=== PATIENT | male | born 1945 | race Caucasian/White ===

== ENCOUNTER 2017-12-20 08:24 | Inpatient (IN) | payer MEDICARE ==
--- NOTE | 2017-12-09 19:12 | HP ---
HISTORY AND PHYSICAL: DATE OF ADMISSION/SURGERY: 12/20/17 DATE OF OFFICE VISIT: 12/09/17 SURGEON: Jessica Mi MD.* (DICTATED BY LENIN BEST) PROCEDURE: Left total knee arthroplasty. CHIEF COMPLAINT: Left knee pain. HISTORY OF PRESENT ILLNESS: Mr. Lockett is a 72-year-old gentleman with end-stage osteoarthritis of the left knee, failed conservative treatment and elected to proceed with a left total knee arthroplasty, which is scheduled for 12/20/17. PAST MEDICAL HISTORY: 1. Hypertension. 2. GERD. 3. High cholesterol. 4. Anemia. 5. Chronic renal insufficiency. PAST SURGICAL HISTORY: 1. Right knee surgery x2. 2. Cholecystectomy. 3. Cataract removal. CURRENT MEDICATIONS: 1. Famotidine 20 mg daily. 2. Losartan potassium 100 mg daily. 3. Doxazosin 8 mg daily. 4. Finasteride 5 mg daily. 5. Rosuvastatin calcium 10 mg daily. 6. Aspirin 81 mg daily. ALLERGIES: To PENICILLIN and SULFA. FAMILY HISTORY: Diabetes, coronary artery disease. SOCIAL HISTORY: He is a 72-year-old gentleman lives with his spouse. He does not smoke or use drugs. He uses occasional alcohol. REVIEW OF SYSTEMS: A complete 14-point review of systems was reviewed with the patient. It is positive for anemia, GERD, and renal insufficiency. He denies history of DVT, PE, HIV, or anesthesia problems. He also has a history of infectious hepatitis in 1958. PHYSICAL EXAMINATION GENERAL: He is well developed, well nourished, in no acute distress. VITAL SIGNS: He stands 67 inches tall, weighs 200 pounds. Blood pressure is 139/82 and his heart rate is 76. HEENT: Normocephalic, atraumatic. NECK: Supple. No palpable lymph nodes. PULMONARY: The lungs are clear to auscultation bilaterally. CARDIO: Regular rate and rhythm. Strong S1, S2. ABDOMEN: Soft, nontender, and nondistended. NEUROLOGIC: He is alert and oriented x3. MUSCULOSKELETAL: Left lower extremity: The skin is intact. There are no open wounds or abrasions. He walks with an antalgic-type gait favoring his left knee. There is a moderate joint effusion and tenderness over the medial lateral joint line. Range of motion is 50 to 90 degrees of flexion with severe patellofemoral crepitus. There are 2+ dorsalis pedis pulses. Intact sensation in his lower extremity. Muscle group strengths are intact at 5/5. ASSESSMENT AND PLAN: Mr. Lockett is a 72-year-old gentleman with end-stage osteoarthritis of the left knee. He has failed conservative treatment and elected to proceed with a left total knee arthroplasty. Surgery scheduled for 12/20/[address] Mi discussed the risks and benefits of the surgery and all of his questions were answered. He will follow up with Dr. Mi 2 weeks after the surgery. LENIN BEST [id number]/[facility] #: [id number] MTDD
[~2017-12-20 08:24] MED LIST: Buffered Lidocaine 0.9% SYRIN* 5 ML/SYR SYRINGE INTRADERM ONE; Dexamethasone IV* 4 MG/ML 1 ML (4 MG) IV SLOW PU ONE; Tranexamic Acid 1,000 MG in NS 0.9% 50 ML* (outpatient use) IV SCH
[2017-12-20] MEDS ORDERED: fentaNYL* 50 MCG/ML 2 ML VIAL (100 MCG VIAL) ONE (08:42)
[2017-12-20] MEDS ORDERED: Midazolam* 1 MG/ML 2 ML VIAL (2 MG) ONE (08:42)
[2017-12-20] MEDS ORDERED: Dexamethasone IV* 4 MG/ML 1 ML (4 MG) ONE (08:49)
[2017-12-20] MEDS ORDERED: Clindamycin 900 MG/D5W BAG(*) 900 MG/50 ML BAG IVPB ONE (08:49)
[2017-12-20] MEDS ORDERED: methylPREDNISolone ACETATE 80* 80 MG/ML 1 ML VIAL ONE (10:11)
[2017-12-20] MEDS ORDERED: Bupivacaine 0.5% SDV PF* 30ML VIAL ONE (10:11)
[2017-12-20] MEDS ORDERED: Lidocaine 1%* 5 ML VIAL ONE (10:50)
[2017-12-20] MEDS ORDERED: ROPIVACAINE 5 MG/ML 30 ML BTL (0.5%) ONE (10:50)
[2017-12-20] MEDS ORDERED: Propofol* 10 MG/ML 20 ML BTL IV PUSH ONE ×3 (12:38→13:40)
[2017-12-20] MEDS ORDERED: Bupivacaine-MPF SPINAL* 7.5 MG/ML - 2ML AMP ONE (12:38)
[2017-12-20] MEDS ORDERED: EPINEPHRINE 1 MG/ML 1 ML VIAL ONE (12:38)
[2017-12-20] MEDS ORDERED: Lidocaine 2% PF* 10 ML AMP ONE (12:38)
[2017-12-20] MEDS ORDERED: Lidocaine 2% PF * 5 ML VIAL ONE (12:39)
[2017-12-20] MEDS ORDERED: Naloxone* 0.4 MG/ML 1 ML VIAL IV PRN (12:54)
[2017-12-20] MEDS ORDERED: Ketorolac INJ* 30 MG/ML 1 ML VIAL IV PRN (12:54)
[2017-12-20] MEDS ORDERED: Acetaminophen TAB* 325 MG PO PRN (12:54)
[2017-12-20] MEDS ORDERED: Morphine VIAL* 4 MG/ML VIAL (1 ml vial) IV PRN ×2 (12:54→14:27)
[2017-12-20] MEDS ORDERED: fentaNYL* 50 MCG/ML 2 ML VIAL (100 MCG VIAL) IV PRN (12:54)
[2017-12-20] MEDS ORDERED: Ondansetron INJ* 2 MG/ML VIAL IV PRN ×2 (12:54→14:27)
[2017-12-20] MEDS ORDERED: HYDROcodone/ACETAMIN 5-325 MG* 1 TAB PO PRN (12:54)
[2017-12-20] MEDS ORDERED: Ondansetron TAB* 4 MG PO PRN (14:27)
[2017-12-20] MEDS ORDERED: oxyCODONE/Acetamin 5/325 MG* TAB PO PRN (14:27)
[2017-12-20] MEDS ORDERED: diPHENhydraMINE PO* 25 MG PO PRN (14:27)
[2017-12-20] MEDS ORDERED: traMADol TAB* 50 MG PO PRN (14:27)
[2017-12-20] MEDS ORDERED: Polyethylene Glycol 3350* 17 GM PACKET PO PRN (14:27)
[2017-12-20] MEDS ORDERED: Magnesium Hydroxide LIQ* 30 ML UDC PO PRN (14:27)
[2017-12-20] MEDS ORDERED: Bisacodyl SUPP* 10 MG SUPP PR PRN (14:27)
[2017-12-20] MEDS ORDERED: diPHENhydraMINE IV* 50 MG/ML 1 ml VIAL (BENADRYL) IV PRN (14:27)
[2017-12-20] MEDS ORDERED: Cyclobenzaprine TAB* 10 MG PO PRN (14:27)
[2017-12-20] MEDS ORDERED: HYDROcodone/ACETAMIN 5-325 MG* 1 TAB ONE (15:07)
--- NOTE | 2017-12-20 15:19 | CONSULT ---
Subjective Date of Service: 12/20/17 Interval History: Pt is a 72 year old male with a PMH HTN, GERD, BPH, osteoarthritis, admitted for elective L total knee arthroplasty with Dr Mi after failing conservative treatment. Pt was examined in PACU after the procedure. Resting comfortably in bed. Pt endorses mild incision pain. Denies shortness of breath, chest pain, nausea/vomiting, abdominal pain, numbness or tingling in extremities. Review of Systems - Measurements Intake and Output: Intake and Output Last 24 Hours 12/18/17 12/19/17 12/20/17 12/21/17 06:59 06:59 06:59 06:59 Intake Total 1400 Output Total 375 Balance 1025 Weight 92.079 kg Intake: IV Fluids 1400 CLINDAMYCIN 900MG 50 LR 1300 TRANEXAMIC ACID 1GM 50ML 50 Output: Thomas 375 - Review of Systems General Comments: 14 point review of systems conducted. All pertinent positives and negatives listed above. Objective Active Medications: Acetaminophen (Tylenol Tab*) 650 mg PO ONCE PRN PRN Reason: PAIN - MILD Acetaminophen (Tylenol Tab*) 975 mg PO Q8H YING Hydrocodone Bitart/Acetaminophen ([place] 5-325 Tab*) 2 tab PO ONCE PRN PRN Reason: PAIN - MODERATE Last Admin: 12/20/17 15:08 Dose: 2 tab Bisacodyl (Dulcolax Supp*) 10 mg VA DAILY PRN PRN Reason: constipation Cholecalciferol (Vitamin D Tab*) 2,000 units PO QAM YING Cyclobenzaprine HCl (Flexeril Tab*) 10 mg PO TID PRN PRN Reason: SPASMS Dexamethasone Sodium Phosphate (Decadron Iv*) 8 mg IV SLOW PU ONCE ONE Stop: 12/20/17 06:01 Last Admin: 12/20/17 09:02 Dose: 8 mg Diphenhydramine HCl (Benadryl Iv*) 25 mg IV Q6H PRN PRN Reason: itching Diphenhydramine HCl (Benadryl Po*) 25 mg PO Q6H PRN PRN Reason: INSOMNIA Docusate Sodium (Colace Cap*) 100 mg PO BID YING Enoxaparin Sodium (Lovenox(*)) 30 mg SUBCUT Q24H YING Famotidine (Pepcid Tab*) 20 mg PO BID YING Fentanyl Citrate (Fentanyl*) 50 mcg IV Q2M PRN PRN Reason: PAIN - MODERATE Finasteride (Proscar Tab*) 5 mg PO QPM [facility] Lactated Ringer's (Lactated Ringers 1000 Ml Bag*) 1,000 mls @ 125 mls/hr IV PER RATE [facility] Last Admin: 12/20/17 09:03 Dose: 125 mls/hr Tranexamic Acid 1,000 mg/ (Sodium Chloride) 60 mls @ 120 mls/hr IV ONCE Stop: 12/20/17 23:59 Cefazolin Sodium/Dextrose (Kefzol 1 Gm In Dextrose Duplex (*)) 1 gm in 50 mls @ 200 mls/hr IVPB Q8H [facility] Stop: 12/21/17 07:14 Lactated Ringer's (Lactated Ringers 1000 Ml Bag*) 1,000 mls @ 100 mls/hr IV PER RATE [facility] Ketorolac Tromethamine (Toradol Inj*) 30 mg IV ONCE PRN PRN Reason: PAIN - MILD Lactulose (Lactulose*) 30 ml PO Q6H PRN PRN Reason: constipation Lidocaine/Sodium Bicarbonate (Buffered Lidocaine 0.9% Syrin*) 0.2 ml INTRADERM ONCE ONE Stop: 12/19/17 11:45 Last Admin: 12/20/17 14:57 Dose: Not Given Magnesium Hydroxide (Milk Of Magnesia Liq*) 30 ml PO BID [facility] Magnesium Hydroxide (Milk Of Magnesia Liq*) 30 ml PO Q6H PRN PRN Reason: constipation Morphine Sulfate (Morphine Vial*) 2 mg IV Q5M PRN PRN Reason: PAIN Morphine Sulfate (Morphine Inj ((Syringe))*) 2 mg IV Q2H PRN PRN Reason: PAIN - SEVERE Naloxone HCl (Narcan*) 0.08 mg IV Q2M PRN PRN Reason: severe induced resp depression Non-Formulary Medication (Doxazosin Mesylate [Cardura]) 8 mg PO BEDTIME [facility] Ondansetron HCl (Zofran Inj*) 4 mg IV ONCE PRN PRN Reason: NAUSEA/VOMITING Ondansetron HCl (Zofran Inj*) 4 mg IV Q6H PRN PRN Reason: nausea Ondansetron HCl (Zofran Tab*) 4 mg PO Q6H PRN PRN Reason: NAUSEA Oxycodone HCl (Roxycodone Tab*) 10 mg PO Q4H PRN PRN Reason: moderate to severe pain Oxycodone/Acetaminophen (Percocet 5/325 Tab*) 1 tab PO Q3H PRN PRN Reason: PAIN - MODERATE Oxycodone/Acetaminophen (Percocet 5/325 Tab*) 2 tab PO Q3H PRN PRN Reason: PAIN - MODERATE Polyethylene Glycol/Electrolytes (Miralax*) 17 gm PO DAILY PRN PRN Reason: Constipation Rosuvastatin Calcium (Crestor (Nf)) 5 mg PO QAM YING; Protocol Tramadol HCl (Ultram*) 50 mg PO Q6H PRN PRN Reason: PAIN Warfarin Sodium (Coumadin Tab(*)) 6 mg PO ONCE@1700 ONE; Protocol Stop: 12/20/17 17:01 Vital Signs - 8 hr 12/20/17 12/20/17 12/20/17 08:52 14:27 14:28 Temperature 97.5 F 97.9 F Pulse Rate 82 71 69 Respiratory 20 12 12 Rate Blood Pressure 138/88 128/89 (mmHg) O2 Sat by Pulse 95 96 97 Oximetry 12/20/17 12/20/17 12/20/17 14:30 14:35 14:40 Temperature Pulse Rate 70 68 68 Respiratory 14 5 10 Rate Blood Pressure 131/85 133/84 128/81 (mmHg) O2 Sat by Pulse 97 95 94 Oximetry 12/20/17 12/20/17 12/20/17 14:45 14:50 15:00 Temperature Pulse Rate 70 71 71 Respiratory 19 13 25 Rate Blood Pressure 123/86 134/82 153/96 (mmHg) O2 Sat by Pulse 96 96 96 Oximetry Oxygen Devices in Use Now: None Eyes: No Scleral Icterus, PERRLA Ears/Nose/Mouth/Throat: NL Teeth, Lips, Gums, Mucous Membranes Moist Neck: NL Appearance and Movements; NL JVP, Trachea Midline Respiratory: Symmetrical Chest Expansion and Respiratory Effort, Clear to Auscultation Cardiovascular: NL Sounds; No Murmurs; No JVD, RRR, No Edema Abdominal: NL Sounds; No Tenderness; No Distention Extremities: No Clubbing, Cyanosis, - - Trace lower extremity edema Skin: No Rash or Ulcers Neurological: Alert and Oriented x 3, NL Sensation, NL Muscle Strength and Tone , - - Able to dorsiflex and plantarflex. Assessment/Plan - Billing Assessment: Mr. Lockett is a 72 year old male with a PMH HTN, BPH, admitted for elective L total knee arthroplasty with Dr. Mi Plan By Medical Problem: 1. s/p left total knee arthroplasty: plan per primary team, ortho. Pain management and bowel regimen ordered by primary team. Trend H/H. Pt will be evaluated by PT/OT. Anticoagulation with lovenox bridge to coumadin. 2. HTN: Pt takes losartan 100mg nightly at home. Post op SBP 130s, so will hold losartan today and can resume on discharge. 3. BPH: Resume home proscar. Doxazosin on hold today in light of SBP 130s, however can resume tomorrow. 4. GERD: Continue home famotidine 5. HLD: Continue home crestor VTE PPX: per ortho, lovenox bridge to coumadin Diet: Regular diet Code Status: Full Code Admission Status and Rationale: Thank you for this consult. Signing off, but please call with any questions and re-consult should any concerns arise.
[2017-12-20] MEDS ORDERED: Warfarin TAB(*) 6 MG PO ONE (17:00)
[2017-12-20] MEDS: Finasteride TAB* 5 MG PO SCH (17:45)
[2017-12-20] MEDS: Famotidine TAB* 20 MG PO SCH (20:45)
[2017-12-20] MEDS: oxyCODONE/Acetamin 5/325 MG* TAB PO PRN (20:45)
[2017-12-20] MEDS: Docusate CAP* 100 MG PO SCH (20:45)
[2017-12-20] MEDS: ceFAZolin 1 GM in Dextrose (*) 1 GM/50 ML BAG IVPB SCH (20:46)
[2017-12-20] MEDS ORDERED: NON FORMULARY MED* (Losartan Potassium [Losartan Potassium] 100 MG) PO SCH (21:00)
[2017-12-20] MEDS ORDERED: DOXAZOSIN MESYLATE 8 MG PO SCH (21:00)
[2017-12-20] MEDS: Acetaminophen TAB* 325 MG PO SCH (21:10)
[2017-12-20] MEDS: Magnesium Hydroxide LIQ* 30 ML UDC PO SCH (21:10)
[2017-12-20] MEDS: oxyCODONE TAB* 5 MG TAB PO PRN (23:43)
[2017-12-21] MEDS: oxyCODONE/Acetamin 5/325 MG* TAB PO PRN ×4 (01:58→20:15)
[2017-12-21] MEDS: ceFAZolin 1 GM in Dextrose (*) 1 GM/50 ML BAG IVPB SCH ×2 (04:19→12:11)
[2017-12-21] MEDS: oxyCODONE TAB* 5 MG TAB PO PRN ×2 (04:19→14:53)
[2017-12-21 05:32] LABS: Hematocrit 31 % (42-52); Hemoglobin 10.8 g/dl (14.0-18.0); Mean Platelet Volume 6.8 fL (7.4-10.4); Platelet Count 159 10^3/ul (150-450)
[2017-12-21 05:36] LABS: INR 1.02 (0.77-1.02)
[2017-12-21 05:57] LABS: EGFR Non-African American 45.5 (>60)
[2017-12-21] MEDS: Acetaminophen TAB* 325 MG PO SCH ×3 (06:03→21:09)
[2017-12-21] MEDS: Magnesium Hydroxide LIQ* 30 ML UDC PO SCH ×2 (08:08→20:14)
[2017-12-21] MEDS: Docusate CAP* 100 MG PO SCH ×2 (08:08→20:14)
[2017-12-21] MEDS: Atorvastatin* 10 MG TAB PO SCH (08:08)
[2017-12-21] MEDS: Cholecalciferol TAB* 1000 UNITS PO SCH (08:08)
[2017-12-21] MEDS: Famotidine TAB* 20 MG PO SCH ×2 (08:08→20:14)
--- NOTE | 2017-12-21 10:40 | PN ---
Progress Note - Progress Note Date of Service: 12/21/17 SOAP: Subjective: []Patient seen and examined at bedside. He had a great deal of pain overnight which has improved this morning. Denies any chest pain, shortness of breath, dizziness, nausea. No history of blood clot. Objective: []General: Well appearing, NAD LLE: Left knee dressing CDI, cryo unit intact, thigh is soft, DF/PF intact, DP2+ , sensation intact distally. Calves supple and nontender without erythema, edema or palpable cords Assessment: []POD 1 sp left total knee replacement Plan: []WBAT PT/OT lovenox, coumadin 8 mg Anticipate DC to home tomorrow Vital Signs Temp 98.0 F 12/21/17 07:24 Pulse 86 12/21/17 07:24 Resp 18 12/21/17 08:09 BP 125/64 12/21/17 07:24 Pulse Ox 96 12/21/17 08:00 Intake & Output 12/20/17 12/21/17 12/21/17 18:59 06:59 18:59 Intake Total 1999 2165 360 Output Total 375 2000 50 Balance 1625 165 310 Weight 203 lb Intake: IV Fluids 1400 800 CLINDAMYCIN 900MG 50 LR 1300 800 TRANEXAMIC ACID 1GM 50ML 50 IVPB 55 ABX - CEFAZOLIN 55 Oral 600 1310 360 Output: Urine 50 Thomas 375 2000 Other: Estimated Void Small # Bowel Movements 0 Laboratory Last Values Hgb 10.8 g/dl (14.0-18.0) L 12/21/17 05:08 Hct 31 % (42-52) L 12/21/17 05:08 Plt Count 159 10^3/ul (150-450) 12/21/17 05:08 MPV 6.8 fL (7.4-10.4) L 12/21/17 05:08 INR (Anticoag Therapy) 1.02 (0.77-1.02) 12/21/17 05:03 Sodium 134 mmol/L (135-145) L 12/21/17 05:08 Potassium 4.5 mmol/L (3.5-5.0) 12/21/17 05:08 Chloride 105 mmol/L (101-111) 12/21/17 05:08 Carbon Dioxide 22 mmol/L (22-32) 12/21/17 05:08 Anion Gap 7 mmol/L (2-11) 12/21/17 05:08 BUN 26 mg/dL (6-24) H 12/21/17 05:08 Creatinine 1.51 mg/dL (0.67-1.17) H 12/21/17 05:08 Est GFR ( Amer) 55.1 (>60) 12/21/17 05:08 Est GFR (Non-Af Amer) 45.5 (>60) 12/21/17 05:08 BUN/Creatinine Ratio 17.2 (8-20) 12/21/17 05:08 Glucose 164 mg/dL (70-100) H 12/21/17 05:08 Calcium 8.9 mg/dL (8.6-10.3) 12/21/17 05:08
[2017-12-21] MEDS ORDERED: Losartan TAB* 25 MG PO ONE ×2 (10:45→21:00)
--- NOTE | 2017-12-21 10:46 | PN ---
Subjective Date of Service: 12/21/17 Interval History: Pt is feeling well. He states currently his pain is controlled but overnight it was not well controlled. He worked with PT earlier today and is awaiting his second session this afternoon. He has no other issues at this time. Objective Active Medications: Acetaminophen (Tylenol Tab*) 975 mg PO Q8HR [facility] Last Admin: 12/21/17 06:03 Dose: Not Given Atorvastatin Calcium (Lipitor*) 10 mg PO QAM [facility]; Protocol Last Admin: 12/21/17 08:08 Dose: 10 mg Bisacodyl (Dulcolax Supp*) 10 mg RI DAILY PRN PRN Reason: constipation Cholecalciferol (Vitamin D Tab*) 2,000 units PO QAM [facility] Last Admin: 12/21/17 08:08 Dose: 2,000 units Cyclobenzaprine HCl (Flexeril Tab*) 10 mg PO TID PRN PRN Reason: SPASMS Diphenhydramine HCl (Benadryl Iv*) 25 mg IV Q6H PRN PRN Reason: itching Diphenhydramine HCl (Benadryl Po*) 25 mg PO Q6H PRN PRN Reason: INSOMNIA Docusate Sodium (Colace Cap*) 100 mg PO BID [facility] Last Admin: 12/21/17 08:08 Dose: 100 mg Doxazosin Mesylate (Cardura Tab*) 8 mg PO BEDTIME [facility] Enoxaparin Sodium (Lovenox(*)) 30 mg SUBCUT Q24H [facility] Famotidine (Pepcid Tab*) 20 mg PO BID [facility] Last Admin: 12/21/17 08:08 Dose: 20 mg Finasteride (Proscar Tab*) 5 mg PO QPM [facility] Last Admin: 12/20/17 17:45 Dose: 5 mg Cefazolin Sodium/Dextrose (Kefzol 1 Gm In Dextrose Duplex (*)) 1 gm in 50 mls @ 200 mls/hr IVPB Q8H [facility] Stop: 12/21/17 12:14 Last Admin: 12/21/17 04:19 Dose: 200 mls/hr Lactated Ringer's (Lactated Ringers 1000 Ml Bag*) 1,000 mls @ 100 mls/hr IV PER RATE [facility] Last Admin: 12/21/17 01:55 Dose: 100 mls/hr Lactulose (Lactulose*) 30 ml PO Q6H PRN PRN Reason: constipation Magnesium Hydroxide (Milk Of Magnesia Liq*) 30 ml PO BID YING Last Admin: 12/21/17 08:08 Dose: 30 ml Magnesium Hydroxide (Milk Of Magnesia Liq*) 30 ml PO Q6H PRN PRN Reason: constipation Morphine Sulfate (Morphine Vial*) 2 mg IV Q2H PRN PRN Reason: PAIN - SEVERE Ondansetron HCl (Zofran Inj*) 4 mg IV Q6H PRN PRN Reason: nausea Ondansetron HCl (Zofran Tab*) 4 mg PO Q6H PRN PRN Reason: NAUSEA Oxycodone HCl (Roxycodone Tab*) 10 mg PO Q4H PRN PRN Reason: moderate to severe pain Last Admin: 12/21/17 04:19 Dose: 10 mg Oxycodone/Acetaminophen (Percocet 5/325 Tab*) 1 tab PO Q3H PRN PRN Reason: PAIN - MODERATE Oxycodone/Acetaminophen (Percocet 5/325 Tab*) 2 tab PO Q3H PRN PRN Reason: PAIN - MODERATE Last Admin: 12/21/17 08:07 Dose: 2 tab Pharmacy Profile Note (Coumadin Daily Reminder*) 1 note FOLLOW UP 1700 YING Polyethylene Glycol/Electrolytes (Miralax*) 17 gm PO DAILY PRN PRN Reason: Constipation Tramadol HCl (Ultram*) 50 mg PO Q6H PRN PRN Reason: PAIN Last Admin: 12/21/17 05:49 Dose: 50 mg Vital Signs - 8 hr 12/21/17 12/21/17 12/21/17 04:18 04:19 05:49 Temperature 98.4 F Pulse Rate 88 Respiratory 18 18 16 Rate Blood Pressure 128/79 (mmHg) O2 Sat by Pulse 96 Oximetry 12/21/17 12/21/17 12/21/17 07:24 08:00 08:07 Temperature 98.0 F Pulse Rate 86 Respiratory 18 20 18 Rate Blood Pressure 125/64 (mmHg) O2 Sat by Pulse 96 96 Oximetry 12/21/17 08:09 Temperature Pulse Rate Respiratory 18 Rate Blood Pressure (mmHg) O2 Sat by Pulse Oximetry Oxygen Devices in Use Now: None Appearance: Elderly male sitting up in a chair, NAD Eyes: No Scleral Icterus Ears/Nose/Mouth/Throat: Mucous Membranes Moist Respiratory: Symmetrical Chest Expansion and Respiratory Effort, Clear to Auscultation Cardiovascular: NL Sounds; No Murmurs; No JVD, No Edema, - - HR is tachycardic but regular Abdominal: NL Sounds; No Tenderness; No Distention Extremities: No Clubbing, Cyanosis, - - L knee in cryounit, minimal swelling of the leg, R LE more swollen than L (pt states that is chronic from a prior injury ) Skin: No Nodules or Sclerosis Neurological: Alert and Oriented x 3 Result Diagrams: 12/21/17 05:08 12/21/17 05:08 Assess/Plan/Problems-Billing Mr. Lockett is a 72 yo M who has a PMHx of HTN and BPH who was admitted post elective L total knee arthroplasty. - Patient Problems (1) Status post total left knee replacement Current Visit: Yes Status: Acute Code(s): Z96.652 - PRESENCE OF LEFT ARTIFICIAL KNEE JOINT SNOMED Code(s): 7339928340713 Comment: Management per orthopedics. Mild anemia today. (2) HTN (hypertension) Current Visit: Yes Status: Acute Code(s): I10 - ESSENTIAL (PRIMARY) HYPERTENSION SNOMED Code(s): 74830579 Comment: BP is under good control. Will resume losartan but at half dose. Monitor BP. (3) BPH (benign prostatic hyperplasia) Current Visit: Yes Status: Acute Code(s): N40.0 - BENIGN PROSTATIC HYPERPLASIA WITHOUT LOWER URINRY TRACT SYMP SNOMED Code(s): 125755706 Comment: Continue proscar and doxazosin. (4) DVT prophylaxis Current Visit: Yes Status: Acute Code(s): RPO5644 - SNOMED Code(s): 375620001 Comment: lovenox bridge to coumadin (5) Full code status Current Visit: Yes Status: Acute Code(s): Z78.9 - OTHER SPECIFIED HEALTH STATUS SNOMED Code(s): 491517685
[2017-12-21] MEDS: Enoxaparin(*) 30 MG/0.3 ML SYR SUBCUT SCH (14:53)
[2017-12-21] MEDS ORDERED: Warfarin TAB(*) 4 MG PO ONE (17:00)
[2017-12-21] MEDS: Finasteride TAB* 5 MG PO SCH (17:07)
[2017-12-21] MEDS ORDERED: Doxazosin TAB* 2 MG PO SCH (21:00)
--- NOTE | 2017-12-21 21:22 | OP ---
OPERATIVE REPORT: DATE OF OPERATION: 12/20/17 DATE OF : 43 SURGEON: Jessica Mi MD OPTICAL MECHANIC: LENIN Kam Ms. did help throughout the procedure with preparation of the leg, wound retraction, manipulation of the knee, and wound closure. ANESTHESIOLOGIST: Dr. Ann. ANESTHESIA: Spinal. PRE-OP DIAGNOSES: 1. Left knee severe end-stage osteoarthritis with significant contracture. 2. Right knee osteoarthritis with pain. POST-OP DIAGNOSES: 1. Left knee severe end-stage osteoarthritis with significant contracture. 2. Right knee osteoarthritis with pain. OPERATIVE PROCEDURE: 1. Left total knee arthroplasty with modifier for complex case adding 1 hour to surgery time. 2. Right knee injection of steroid. INDICATIONS: Mr. Lockett is a 72-year-old gentleman with years of increasingly severe bilateral knee pain. He failed conservative treatment with antiinflammatories, pain medications, intra-articular injections, and physical therapy. Due to continued pain, he elected to undergo left total knee arthroplasty. Radiographs showed severe end-stage arthritis with extensive osteophyte formation. Physical exam showed severe contracture with 25 to 80 degrees of flexion. Due to continued pain and decreased quality of life, the patient elected to undergo left total knee arthroplasty. Informed consent was obtained from the patient. He understood the risks of surgery included but were not limited to bleeding, infection, damage to nearby structures, continued pain, need for further surgery, intraoperative fracture, nerve palsy, hardware failure or loosening, knee stiffness, loss of motion, stroke, heart attack, blood clot, and . The patient requested right knee steroid injection under anesthesia as well. ESTIMATED BLOOD LOSS: 250 cc. TOURNIQUET TIME: 71 minutes. COMPLICATIONS: None. SPECIMENS: Bone and cartilage from the left knee joint sent to Pathology. HARDWARE USED: This is [employer] cemented total knee arthroplasty hardware, 2 packages of Simplex bone cement. For the femur, size 6 left posterior stabilized Legion femoral component. For the tibia, a size 5 left tibial base plate. For the insert, an 9-mm posterior stabilized articular insert, size 5/6 and for the patella, a 35-mm 3-peg all poly patella. INTRAOPERATIVE FINDINGS: Intraoperatively, the patient was noted to have 25 to 80 degrees of flexion preoperatively. There is severe contracture that made exposure of the knee and almost every step of the surgery more complex. This did add at least 1 hour of operative time to the case. Postoperatively, the patient did have full extension and 125 degrees of flexion. The patient was noted to have extensive osteophyte formation and completely loss of cartilage in all 3 compartments. DESCRIPTION OF PROCEDURE: Mr. Lockett was identified in the preanesthesia unit. His right lower extremity was marked as the correct operative side for injection. Left lower extremity was marked as the correct operative side for arthroplasty. Informed consent was placed in the chart. The patient was taken to the operating room and placed under spinal anesthesia. A Thomas catheter was placed. The right knee was thoroughly prepped with Betadine. 80 mg Depo- Medrol and 6 cc of 0.25% Marcaine were placed into the right knee joint. Next, the tourniquet was placed on the left thigh. Left lower extremity was prepped and draped in the usual sterile fashion. Preop time-out was made to correctly identify the patient, side, and site. Appropriate perioperative antibiotics were given within 1 hour of incision. A midline incision was made after tourniquet inflation. Total tourniquet time for this procedure was 71 minutes. A new 10-blade was used to make a standard medial parapatellar arthrotomy. There was severe contracture around the knee and difficulty with lateral subluxation of the patella. Patella was everted and 9 mm of patellar cartilage and osteophyte was carefully removed with an oscillating saw. Careful elevation along the distal patellar tendon insertion was made to laterally sublux the patella. Electrocautery was used to subperiosteally elevate the soft tissue along the superomedial tibia to the mid sagittal plane. Significant amount of time was used to remove visible osteophytes from around the femur and tibia. When the knee was flexed up, we had about 85 degrees of flexion. A drill was used to enter the distal femur. Intramedullary distal femoral cutting guide was pinned on the distal femur. An oscillating saw was used to make the distal femoral cut. Next, the external rotation guide was pinned on the distal femur and the distal femur was sized to a size 6. A size 6 multi-cutting jig was pinned on the distal femur. Oscillating saw was used to make the appropriate 4 chamfer cuts. PCL was completely released. The tibia was subluxed anteriorly. Extramedullary tibial cutting guide was pinned on the proximal tibia. Oscillating saw was used to make the proximal tibial cut perpendicular to the mechanical axis of the tibia. The bone was carefully removed. The knee was brought out into extension. There was some tightness laterally. Electrocautery was used to dissect around the medial tibial plateau. Any remaining osteophytes were carefully removed. A spacer block did have good fit. Medial and lateral ligamentous balancing was satisfactory. Flexion and extension gaps were well balanced. The knee was flexed up. A lamina orthopedic rn was placed both medially and laterally. Any remaining meniscus was carefully removed using electrocautery. At least 20 minutes was spent with a curved osteotome, curette, and rongeur removing posterior osteophytes and osteophytes from around the femur and tibia at this point. Tibial tray and drop samuel confirmed a satisfactory tibial cut. A size 6 left femoral trial was impacted on to the distal femur and had excellent fit and stability. The box for the posterior stabilized implant was prepared using a reamer and box cut osteotome. A size 5 tibial tray with a 9- mm insert trial was placed and the knee was taken through a range of motion. The knee had full extension to 125 degrees of flexion. There was satisfactory patellofemoral tracking. The patella was everted. Patella was sized to a size 35. Three peg holes were drilled through the size 35 guide. A 35 trial patella was placed and the knee was taken through a range of motion. There was satisfactory patellofemoral tracking. All trials were carefully removed. Tibia was subluxed anteriorly and sized to a size 5. The proximal tibia was prepared using a size 5 keel punch. All bony cut surfaces were copiously irrigated with sterile saline and dried. Final implants were cemented into place starting with the tibia followed by the femur and lastly the patella. A 9-mm insert trial was placed and the knee was brought out into full extension. Tourniquet was turned down at 71 minutes. Electrocautery was used to obtain meticulous hemostasis. The knee was copiously irrigated with sterile saline. Once the cement had fully cured, the insert trial was removed. Any excess cement was carefully removed from around the implant. Final insert chosen was a 9- mm Khadijah II posterior stabilized articular insert, size 5/6. This was locked into position on the tibial tray. Stability of the insert was checked and rechecked and noted to be stable. The knee was once again copiously irrigated with sterile saline. The extensor mechanism was closed using interrupted #1 Vicryls. The rest of the incision was closed in a layered fashion using 0 and 2-0 Vicryls. Skin was closed using running 3-0 nylon suture. Sterile Xeroform, 4x4s, and Webril were placed over this. Angelo wrap and cold pack were placed on top. The patient's anesthesia was reversed without difficulty. He was taken to the PACU in stable condition. Intended weightbearing will be weightbearing as tolerated. Intended DVT prophylaxis will be Coumadin with a Lovenox bridge. [id number]/[facility] #: [id number] JOSE
[2017-12-22] MEDS: oxyCODONE/Acetamin 5/325 MG* TAB PO PRN ×4 (01:02→12:05)
[2017-12-22] MEDS: Acetaminophen TAB* 325 MG PO SCH (05:15)
[2017-12-22 05:59] LABS: Hematocrit 30 % (42-52); Hemoglobin 10.4 g/dl (14.0-18.0); Mean Platelet Volume 6.9 fL (7.4-10.4); Platelet Count 148 10^3/ul (150-450)
[2017-12-22 06:06] LABS: INR 1.29 (0.77-1.02)
[2017-12-22] MEDS: Docusate CAP* 100 MG PO SCH (08:18)
[2017-12-22] MEDS: Cholecalciferol TAB* 1000 UNITS PO SCH (08:18)
[2017-12-22] MEDS: Magnesium Hydroxide LIQ* 30 ML UDC PO SCH (08:18)
[2017-12-22] MEDS: Atorvastatin* 10 MG TAB PO SCH (08:19)
[2017-12-22] MEDS: Famotidine TAB* 20 MG PO SCH (08:19)
--- NOTE | 2017-12-22 09:49 | PN ---
Progress Note - Progress Note Date of Service: 12/22/17 SOAP: Subjective: [] Patient seen and examined at bedside. Denies chest pain, shortness of breath , dizziness, nausea. Desires DC home and has met goals with PT Objective: []General: Well appearing, NAD LLE: Left knee dressingchanged by Dr Mi this morning, remains CDI, cryo unit intact, thigh is soft, DF/PF intact, DP2+, sensation intact distally. Calves supple and nontender without erythema, edema or palpable cords Assessment: []POD 2 sp left total knee replacement Plan: []WBAT PT/OT lovenox, coumadin 8 mg today Anticipate DC to home today Laboratory Last Values Hgb 10.4 g/dl (14.0-18.0) L 12/22/17 05:44 Hct 30 % (42-52) L 12/22/17 05:44 Plt Count 148 10^3/ul (150-450) L 12/22/17 05:44 MPV 6.9 fL (7.4-10.4) L 12/22/17 05:44 INR (Anticoag Therapy) 1.29 (0.77-1.02) H 12/22/17 05:44 Sodium 134 mmol/L (135-145) L 12/21/17 05:08 Potassium 4.5 mmol/L (3.5-5.0) 12/21/17 05:08 Chloride 105 mmol/L (101-111) 12/21/17 05:08 Carbon Dioxide 22 mmol/L (22-32) 12/21/17 05:08 Anion Gap 7 mmol/L (2-11) 12/21/17 05:08 BUN 26 mg/dL (6-24) H 12/21/17 05:08 Creatinine 1.51 mg/dL (0.67-1.17) H 12/21/17 05:08 Est GFR ( Amer) 55.1 (>60) 12/21/17 05:08 Est GFR (Non-Af Amer) 45.5 (>60) 12/21/17 05:08 BUN/Creatinine Ratio 17.2 (8-20) 12/21/17 05:08 Glucose 164 mg/dL (70-100) H 12/21/17 05:08 Calcium 8.9 mg/dL (8.6-10.3) 12/21/17 05:08 Vital Signs Temp 97.8 F 12/22/17 07:21 Pulse 90 12/22/17 07:21 Resp 18 12/22/17 08:19 BP 117/71 12/22/17 07:21 Pulse Ox 95 12/22/17 08:00 Intake & Output 12/21/17 12/22/17 12/22/17 18:59 06:59 18:59 Intake Total 2754 750 620 Output Total 325 1700 Balance 2429 -950 620 Intake: IV Fluids 1034 ABX - CEFAZOLIN 110 LR 924 Oral 1720 750 620 Output: Urine 325 1700 Other: Estimated Void Small
[2017-12-22] MEDS: Enoxaparin(*) 30 MG/0.3 ML SYR SUBCUT SCH (11:00)
[2017-12-22 11:59] VITALS: BP 102/60
--- NOTE | 2017-12-23 11:07 | DS ---
AMENDED REPORT NOW INCLUDES DESIGNATED COSIGNER DISCHARGE SUMMARY: DATE OF ADMISSION: 12/20/17 DATE OF DISCHARGE: 12/22/17 PROVIDER: Dr. Jessica Mi.* (DICTATED BY LENIN EATON) OPERATIVE PROCEDURE: Left total knee arthroplasty with modifier for complex case adding 1 hour to surgery time. Right knee injected with steroids. HISTORY: Mr. Lockett is a 72-year-old gentleman with years of increasingly severe bilateral knee pain. He failed conservative management, antiinflammatories, pain medications, intraarticular injections, and physical therapy. Due to continued pain, he received a right knee injection of steroid and left total knee arthroplasty with modifier for complex case adding 1 hour to surgery time. HOSPITAL COURSE: The patient was admitted to [facility] on . He underwent a left total knee arthroplasty as well as a right knee steroid injection without complications. He recovered briefly in the PACU and was transferred to short-stay surgical unit in stable condition. He was followed by hospitalist service during his stay as well. His losartan was held during his stay and resumed on discharge. Otherwise, no changes to medications. Postop day 1, on exam, he was well appearing, in no acute distress. Dorsiflexion and plantar flexion intact. DP pulse 2+. Sensation intact distally. Postop day 2, again well appearing, in no acute distress. Dressing was changed by Dr. Mi this morning. Dressing remained clean, dry, and intact after it was changed. Dorsiflexion and plantarflexion intact. DP pulse 2+. Sensation intact distally. LABORATORY RESULTS: Hemoglobin 10.4, hematocrit 30, INR 1.29. Sodium 134, potassium 4.5. Vital Signs: Temperature 97.8, pulse 90, respiratory rate 18, blood pressure 117/71, pulse ox 95. The patient was deemed medically and orthopedically stable for discharge home. He met his goals with physical therapy. DISCHARGE MEDICATIONS: Include: 1. Multivitamin daily. 2. Finasteride 5 mg p.o. q.p.m. 3. Rosuvastatin 5 mg p.o. q. a.m. 4. Doxazosin 8 mg p.o. at bedtime. 5. Losartan 100 mg p.o. at bedtime. 6. Famotidine 20 mg p.o. b.i.d. 7. Vitamin D 2000 units p.o. q.a.m. 8. Docusate 100 mg p.o. b.i.d. 9. Warfarin 2 mg tablet, 1 to 2 tablets daily, dose depends on INR drops. 10. Acetaminophen 975 mg p.o. q.8 hours p.r.n., maximum dose of Tylenol from all source is 4000 mg. 11. Percocet 5/325 one to two tabs every 4 to 6 hours as needed for pain, maximum daily dose of 10. DISCHARGE PLAN: The patient will be weightbearing as tolerated. He may shower on his 3rd postoperative day. He will follow up with Dr. Mi in 10 to 14 days postoperatively. [facility] He will be on Coumadin for DVT prophylaxis. His INR on 10/01 was 1.29. His dosing for Coumadin on 12/22/17 was 8 mg; 12/23/17 to 01/01, he will take 4 mg daily. He will recheck his INR for further dosing instructions on 12/26/17. He will take Percocet 5/325 one to two tabs by mouth every 4 to 6 hours as needed for pain, maximum 10 tabs per day. DISPOSITION: He is discharged to home. LENIN EATON [id number]/[facility] #: [id number] MTDD
== END 2017-12-22 12:20 | disposition home health service (06) | DRG 470 ==
LOC: AA 08:24 → SSU 15:17
PROVIDERS: ADMIT Orthopaedic Surgery Adult Reconstructive Orthopaedic Surgery; ATTEND Orthopaedic Surgery Adult Reconstructive Orthopaedic Surgery
PROC: 3E0U33Z Introduction of Anti-inflammatory into Joints, Percutaneous Approach (ICD-10-PCS; 2017-12-20)
PROC: 3E0U3BZ Introduction of Anesthetic Agent into Joints, Percutaneous Approach (ICD-10-PCS; 2017-12-20)
PROC: 0SRD0J9 Replacement of Left Knee Joint with Synthetic Substitute, Cemented, Open Approach (ICD-10-PCS; principal; 2017-12-20 11:00)
DX: M17.0 Bilateral primary osteoarthritis of knee (principal); N13.8 Other obstructive and reflux uropathy; K21.9 Gastro-esophageal reflux disease without esophagitis; I12.9 Hypertensive chronic kidney disease with stage 1 through stage 4 chronic kidney disease, or unspecified chronic kidney disease; N18.9 Chronic kidney disease, unspecified; D64.9 Anemia, unspecified; M25.462 Effusion, left knee; I34.0 Nonrheumatic mitral (valve) insufficiency; N40.1 Benign prostatic hyperplasia with lower urinary tract symptoms; E55.9 Vitamin D deficiency, unspecified; E78.5 Hyperlipidemia, unspecified; M24.562 Contracture, left knee; M25.762 Osteophyte, left knee; Z90.49 Acquired absence of other specified parts of digestive tract; Z98.49 Cataract extraction status, unspecified eye; Z88.0 Allergy status to penicillin; Z87.891 Personal history of nicotine dependence; Z86.19 Personal history of other infectious and parasitic diseases; Z88.2 Allergy status to sulfonamides; Z83.3 Family history of diabetes mellitus; Z82.49 Family history of ischemic heart disease and other diseases of the circulatory system; Z72.89 Other problems related to lifestyle; Z79.01 Long term (current) use of anticoagulants
CPT/HCPCS: 36415; 80048; 85014; 85018; 85049; 85610; 88305; 88311; A9270-GY; C1776; G8978-GP-CL; G8979-GP-CI; G8990-GO-CJ; G8991-GO-CI; J0690; J1040; J1100; J1650; J2001; J2250; J2704; J2795; J3010